=== PATIENT | female | born 1990 | race African-American/Black ===

== ENCOUNTER 2018-04-03 19:47 | Inpatient (IN) | payer SELFPAY ==
--- NOTE | 2018-04-03 20:47 | RAD ---
CHEST ONE VIEW: 04/03/18 HISTORY: Chest pain. tachycardia. COMPARISON: None. FINDINGS: Heart size is mildly enlarged. No pneumothorax. No focal air space consolidation. No acute osseous ab normality. IMPRESSION: Mild cardiomegaly. POS: [facility]
[2018-04-03] MEDS ORDERED: Acetaminophen 500 MG TAB ONE (20:51)
[2018-04-03] MEDS ORDERED: niCARdipine 20MG In NaCl 20 MG/200 ML BAG ONE (21:24)
--- NOTE | 2018-04-03 22:31 | HP ---
PRIMARY CARE PHYSICIAN: [facility]. CHIEF COMPLAINT: Back pain and elevated blood pressure. HISTORY OF PRESENT ILLNESS: Ms. Connie Ortiz is a 27-year-old female with past medical history of morbid obesity, hypertension, and diabetes, who presents as a transfer from outside hospital for systolic blood pressure of 235. The patient presents to the ED for back pain. The patient reports that she has been taking her medications. The patient's PCP started her on clonidine 0.1 tablet b.i.d. The patient also takes lisinopril, she thinks that she is taking 10 mg but she is not sure. The patient in the past was also on hydrochlorothiazide, but that was discontinued by PCP and was started on clonidine tablets. The patient denies any headache, chest pain, shortness of breath, abdominal pain, any visual changes, nausea, vomiting, or diarrhea. The patient does not report any other symptoms at this point. Back pain is well controlled at this point. The patient in the ER, was started on Cardene drip because the blood pressure was still 212 on admission. PAST MEDICAL HISTORY: Hypertension, morbid obesity, and diabetes. PAST SURGICAL HISTORY: The patient denies any surgeries. MEDICATIONS: 1. Lisinopril unknown dosage. 2. Clonidine 0.1 mg twice per day. 3. Metformin twice per day. SOCIAL HISTORY: Denies any smoking, illicit drugs, or alcohol use. FAMILY HISTORY: Mother has hypertension. REVIEW OF SYSTEMS: 10-point review of system negative other than mentioned in the HPI. PHYSICAL EXAMINATION: VITAL SIGNS: Blood pressure 172/106, pulse 104, respiration rate 18, O2 saturation 99% on room air. GENERAL: Alert. HEENT: Head, atraumatic. Ear and nose examination grossly normal. Throat, no exudate. NECK: No lymphadenopathy noted. HEART: Tachycardia, otherwise normal rhythm. No murmur, rubs, or gallops. RESPIRATION: Clear bilateral. No wheezes. ABDOMEN: Soft. Bowel sounds positive. Nontender. EXTREMITIES: No lower extremity edema noted. NEUROLOGICAL: Alert. PSYCH: Normal mood. DIAGNOSTIC DATA: EKG from the outside hospital was significant for sinus tachycardia but no ST-segment elevation. LABORATORY DATA: Labs from outside hospital were reviewed, significant for creatinine of 1.3, potassium of 3.9, sodium of 136. White blood cell count of 14, otherwise nonsignificant per the ER. ASSESSMENT AND PLAN: 1. Hypertensive urgency. The patient's blood pressure is elevated, but she is asymptomatic without end-organ damage at this point. The patient was started on a Cardene drip. We will continue Cardene drip at this point. I have increased her lisinopril from 10 mg to 10 mg b.i.d. I have added metoprolol b.i.d. at this point. We will continue Cardene drip once the blood pressure starts to improve. BNP and troponin were negative on admission. We will continue tele at this point. 2. Leukocytosis, likely reactive. We will trend labs in the morning. 3. Diabetes. We will hold home metformin at this point. We will have sliding scale insulin low dose. 4. DVT prophylaxis addressed. 5. The patient is full code. 6. Medical power of commercial attorney. The patient does not have any one designated, but does want her parents to make a decision if she is not able to. Job ID: [id number]
[2018-04-03] MEDS ORDERED: Acetaminophen 325 MG TAB PO PRN (22:56)
[2018-04-03] MEDS ORDERED: Bisacodyl 10 MG SUPP PR PRN (22:56)
[2018-04-03] MEDS ORDERED: HYDROcodone/Acetaminophen 5/325 mg Tablet PO PRN (22:56)
[2018-04-03] MEDS ORDERED: Dextrose 50% Abboject 50 ML SYRINGE SLOW IVP PRN (22:56)
[2018-04-03] MEDS ORDERED: Dextrose 5% in Water 1,000 ML IV PRN (22:56)
[2018-04-03] MEDS ORDERED: Ondansetron ODT 4 MG TAB PO PRN (22:56)
[2018-04-03] MEDS: niCARdipine HCl 25 MG in Sodium Chloride 0.9% 250 ML 240 ML IVPB SCH (23:20)
[2018-04-03 23:24] VITALS: BMI 48.6
[2018-04-04] MEDS: niCARdipine HCl 25 MG in Sodium Chloride 0.9% 250 ML 240 ML IVPB SCH ×3 (02:32→08:49)
[2018-04-04 06:41] LABS: #Basophils 0.1 thou/uL (0.0-0.2); #Eosinphils 0.2 thou/uL (0.0-0.7); #Monocytes 0.6 thou/uL (0.11-0.59); #Neutrophils 9.4 thou/uL (1.40-6.50); %Basophils 0.7 % (0.0-1.0); %Eosinophils 1.3 % (0.0-10.0); %Lymphocytes 22.4 % (21.0-51.0); %Monocytes 4.5 % (0.0-10.0); %Neutrophils 71.2 % (42.0-75.0); Hemoglobin 13.1 g/dL (12.0-16.0); Mean Corpuscular HGB CONC 32.6 g/dL (32.0-36.0); Mean Corpuscular Hemoglobin 28.5 pg (27.0-31.0); Mean Corpuscular Volume 87.5 fL (78.0-98.0); Mean Platelet Volume 7.7 fL (7.4-10.4); Platelet Count 415 thou/uL (130-400); RBC Distribution Width 13.3 % (11.5-14.5); Red Blood Cell (RBC) Count 4.61 mill/uL (4.20-5.40); White Blood Cell (WBC) Count 13.2 thou/uL (4.8-10.8)
[2018-04-04 07:00] LABS: Anion Gap 15 mmol/L (10-20); BUN (Urea Nitrogen) 11 mg/dL (7.0-18.7); Calc. Creatinine Clearance 153 mL/min (70-130); Carbon Dioxide 23 mmol/L (22-29); Chloride 100 mmol/L (98-107); Estimated GFR-MDRD 68; Glucose 284 mg/dL (70-105); Potassium 3.5 mmol/L (3.5-5.1); Sodium 134 mmol/L (136-145)
[2018-04-04] MEDS: Enoxaparin Sodium 40 MG/0.4 ML SYRINGE SC SCH (08:48)
[2018-04-04] MEDS: Lisinopril 10 MG TAB PO SCH ×2 (08:48→21:36)
[2018-04-04] MEDS: HumaLOG 300 UNITS/3 ML VIAL SC PRN ×3 (08:52→17:41)
[2018-04-04] MEDS ORDERED: Metoprolol Tartrate 25 MG TAB PO SCH (09:00)
[2018-04-04] MEDS ORDERED: cloNIDine 0.1 MG TAB PO PRN (09:10)
[2018-04-04] MEDS ORDERED: cloNIDine 0.2 MG TAB PO SCH (09:45)
--- NOTE | 2018-04-04 10:04 | CON ---
DATE OF CONSULTATION: HISTORY OF PRESENT ILLNESS: Connie Ortiz is a 27-year-old female, who is 140 kg, presented to the ER last night with apparently high blood pressure. Blood pressure was measured at 235/120. She says she has no known history of hypertension. 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 Denies any chest pain, headache, dullness, cough, wheezing, orthopnea, or PND. PAST MEDICAL HISTORY: Morbid obesity, diabetes, hypertension. PREVIOUS SURGERIES: None. SOCIAL HISTORY: Alcohol, none. Drug abuse, none. Tobacco, none. She does home health. MEDICATIONS: Chronic medications from home include; 1. Metformin 500 once a day. 2. Invokana 100 once a day. 3. Lovastatin 10 a day. 4. Catapres patch 0.1, 24 hours a day. ALLERGIES: NONE. REVIEW OF SYSTEMS: Otherwise 10-point negative. She is on a Cardene drip. PHYSICAL EXAMINATION: VITAL SIGNS: Pulse 101, blood pressure is 150/101, saturations 90%, respirations 18. GENERAL: She is in no distress. Awake, alert, responsive. CHEST: Decreased breath sounds. No wheezing. CARDIAC: Normal S1 and S2. No gallops. ABDOMEN: No masses. LABORATORY DATA: Creatinine is 1.15, glucose 285. Chest x-ray was normal. IMPRESSION: 1. Uncontrolled hypertension. 2. Probable sleep apnea. 3. Morbid obesity. 4. Diabetes. Reinstitute home medication. She is to have outpatient sleep study. When she is off the Cardene, she can be transferred out of the ICU. TIME SPENT: Consultation note, 70 minutes, 50% direct patient care. Job ID: [id number]
[2018-04-04] MEDS ORDERED: niCARdipine HCl 25 MG in Sodium Chloride 0.9% 250 ML 240 ML IVPB SCH (10:15)
[2018-04-04] MEDS ORDERED: HumaLOG 300 UNITS/3 ML VIAL SC PRN (15:12)
--- NOTE | 2018-04-04 15:25 | PRG ---
DATE OF SERVICE: 04/04/2018 SUBJECTIVE: The patient denies any new complaints at this time. She currently off Cardene drip. No chest pain, shortness of breath, or palpitations reported. No epistaxis or gross hematuria reported. OBJECTIVE: VITAL SIGNS: Temperature 98.4, pulse rate of 96, blood pressure 133/104, O2 saturation 98% on room air, respirations of 16. GENERAL: A 27-year-old female, in no apparent distress. Denies any shortness of breath. LUNGS: Show diminished air entry at bilateral bases. No wheezing, rales, or rhonchi. HEART: S1 and S2 present. Regular rate and rhythm. No murmur, rubs, or gallops appreciated. ABDOMEN: Soft, obese. Bowel sounds present. No rebound or guarding. EXTREMITIES: No edema or calf tenderness. NEUROLOGIC: Grossly nonfocal. Moves all 4 extremities. PSYCHIATRIC: Alert, awake, and oriented x3. DIAGNOSTIC STUDIES: Telemetry monitoring by my review showed sinus rhythm. Chest x-ray by my review was negative for infiltrate. LABORATORY FINDINGS: Creatinine 1.15, BUN 11, sodium 134, and potassium 3.5. WBC 13.2, hemoglobin 13.1, and platelets 415. Magnesium and phosphorus in normal range. Creatinine in the emergency room was 1.3. BNP was normal. Urinalysis was negative for wbc or bacteria. test was negative. IMPRESSION: 1. Hypertensive emergency, requiring Cardene drip. 2. Chronic hypertension. 3. Diabetes mellitus, type 2. 4. Hyponatremia. 5. Acute kidney injury on chronic kidney disease, stage 2. 6. Morbid obesity with a BMI of 48.7. 7. Leukocytosis, unlikely to be infectious. 8. Family history of hypertension. PLAN: The patient has been started on oral antihypertensive. Cardene drip will be discontinued. We will continue clonidine at 0.2 b.i.d. Lisinopril dose has been increased to 10 mg b.i.d. We will add glipizide due to uncontrolled blood sugar. We will continue sliding scale. We will change metoprolol to carvedilol. The patient was extensively counseled on hypertension and importance of medication compliance. The patient can be transferred out of the intensive care unit. Plan of care was discussed with the patient in detail. She stated understanding. Job ID: [id number]
[2018-04-04] MEDS: Carvedilol 6.25 MG TAB PO SCH (17:41)
[2018-04-04] MEDS: glipiZIDE 5 MG TAB PO SCH (17:41)
[2018-04-04] MEDS: cloNIDine 0.2 MG TAB PO SCH (21:36)
[2018-04-05] MEDS: Lisinopril 10 MG TAB PO SCH (07:37)
[2018-04-05] MEDS: cloNIDine 0.2 MG TAB PO SCH (07:38)
[2018-04-05] MEDS: glipiZIDE 5 MG TAB PO SCH (07:38)
[2018-04-05] MEDS: Enoxaparin Sodium 40 MG/0.4 ML SYRINGE SC SCH (07:38)
[2018-04-05] MEDS: Carvedilol 6.25 MG TAB PO SCH (07:39)
[2018-04-05 08:01] VITALS: TEMP 98.3
--- NOTE | 2018-04-05 11:35 | PRG ---
DATE OF SERVICE: 04/05/2018 SUBJECTIVE: A 27-year-old morbidly obese female, who has much improved. OBJECTIVE: VITAL SIGNS: Blood pressure is 140/72, saturations , respirations 20, temperature 98.3. CHEST: No wheezing or crackles. CARDIAC: Normal S1 and S2. IMPRESSION: 1. Uncontrolled hypertension. 2. Morbid obesity. 3. Probably sleep apnea. 4. Blood pressure much improved. PLAN: We will discharge her home any time. She needs an outpatient sleep study. Job ID: [id number]
[2018-04-05 11:43] VITALS: BP 138/99
--- NOTE | 2018-04-05 17:15 | DIS ---
DATE OF ADMISSION: 04/03/2018 DATE OF DISCHARGE: 04/05/2018 DISCHARGE DISPOSITION: Home. FOLLOWUP: 1. Follow up with primary care physician at [facility] in 1 week. 2. Follow up with Dr. Ortiz in 2 to 3 weeks for outpatient sleep study. ALLERGIES: NO KNOWN DRUG ALLERGIES. DISCHARGE MEDICATIONS: 1. Aspirin 81 mg q.h.s. 2. Metformin 500 mg b.i.d. 3. Clonidine 0.1 mg three times a day. 4. Carvedilol 3.125 mg b.i.d. 5. Glipizide 5 mg b.i.d. 6. Lisinopril 10 mg b.i.d. BRIEF HOSPITAL COURSE: The patient is a 27-year-old female with hypertension, presented to the hospital with elevated blood pressure of 235 systolic. Please refer to the history and physical for further details. The patient was admitted to the intensive care unit with a diagnosis of hypertensive crisis. She was also started on her home medications. Clonidine dose has been increased. Low-dose beta blockers have been added. Lisinopril has been increased to twice a day. Due to elevated blood sugar, glipizide was added as well. Her blood pressure on the day of discharge is 140/72, 133/90. Lifestyle modification including low-salt diet was emphasized. She was advised to follow up with Dr. Ortiz for sleep study. FINAL DIAGNOSES: 1. Hypertensive emergency, requiring Cardene drip. 2. Chronic hypertension. 3. Diabetes mellitus, type 2. 4. Hyponatremia. 5. Acute kidney injury on chronic kidney disease stage 2. 6. Morbid obesity with a BMI of 48.7. 7. Leukocytosis, unlikely to be infectious. 8. Family history of hypertension. PLAN: Plan was discussed with the patient in detail. She stated understanding. Job ID: [id number]
== END 2018-04-05 13:24 | disposition home or self-care (01) | DRG 305 ==
LOC: ERS 19:47 → CCU 22:48 → T4-A 04-04 14:57
PROVIDERS: ADMIT Family Medicine; ATTEND Family Medicine
DX: I16.1 Hypertensive emergency (principal); N17.9 Acute kidney failure, unspecified; Z68.42 Body mass index [BMI] 45.0-49.9, adult; E87.1 Hypo-osmolality and hyponatremia; E66.01 Morbid (severe) obesity due to excess calories; E11.22 Type 2 diabetes mellitus with diabetic chronic kidney disease; I12.9 Hypertensive chronic kidney disease with stage 1 through stage 4 chronic kidney disease, or unspecified chronic kidney disease; N18.2 Chronic kidney disease, stage 2 (mild); G47.30 Sleep apnea, unspecified; D72.829 Elevated white blood cell count, unspecified; Z82.49 Family history of ischemic heart disease and other diseases of the circulatory system; Z79.84 Long term (current) use of oral hypoglycemic drugs; Z79.899 Other long term (current) drug therapy
CPT/HCPCS: 36415; 36416; 71045; 80048; 83880; 84484; 85025; 90471; 90732; 96365; 96366; G0009; J1650; J7050